=== PATIENT | male | born 1965 | race Caucasian/White ===

== ENCOUNTER → 2021-09-22 14:30 | Outpatient (BNVA) | payer MEDICARE, SELFPAY | PROVIDERS: PCP Family Medicine; Visit Provider Internal Medicine Cardiovascular Disease | DX: R07.89 Other chest pain (principal); E78.5 Hyperlipidemia, unspecified; I10 Essential (primary) hypertension; R06.02 Shortness of breath; F17.200 Nicotine dependence, unspecified, uncomplicated; F12.10 Cannabis abuse, uncomplicated | CPT/HCPCS: 93005; 99204 ==

== ENCOUNTER 2021-12-10 09:29 | Outpatient (CLI) | payer MEDICARE, SELFPAY ==
[2021-12-10 09:48] VITALS: BMI 25.0
--- NOTE | 2021-12-10 10:03 | ECG_ITS ---
[facility] Test Date: 2021-12-10 Pat Name: Edgar Florence Department: Room: Gender: Male Psychologist Educational: : 1965 Requested By: Ramakrishna Pike Order Number: [id number] Carmen MD: Ramakrishna Pike M.D. Interpretive Statements NAME OF STUDY: LEXISCAN SESTAMIBI STRESS TEST INDICATION: Chest Pain, PROCEDURE: At the baseline, the EKG revealed normal sinus rhythm with a heart rate of [address] Ts.. The baseline heart was 75 bpm with a blood pressue of 142/85 mm of Hg Lexiscan was infused over a period of 20 seconds. A total of 0.4 milligrams of Lexiscan was infused. The stress phase was continued for a total of 5 minutes. Heart rate at the end of the stress phase was 76 bpm with a blood pressure 143/87 mm of Hg. The EKG at the peak infusion revealed no significant changes. Sestamibi was injected 20 seconds after the Lexiscan infusion. Heart rate at the end of the recovery phase was 70 bpm with a blood pressure of 128/68 mm of Hg. CONCLUSION: 1. No significant EKG changes with the LexiScan infusion 2. No LexiScan induced chest pain or cardiac arrhythmia 3. Normal blood pressure and heart rate response 4. Sestamibi/sestamibi perfusion scan pending; see separate report. Electronically Signed On 12-16-2021 11:30:06 [employer] by Ramakrishna Pike M.D. [email or web address]
--- NOTE | 2021-12-10 10:04 | NMCV_ITS ---
NM anitra perf SPECT r/s* [id number] Edgar Florence Age: 56 Gender: M : 1965 Exam Date: 12/10/2021 10:56 Ordering Phys: Ramakrishna Pike MD ([email or web address]) Technologist: CARLIN Harmna Exam Location: [facility] Indications: SHORTNESS OF BREATH STRESS TEST [facility] IMAGE PROTOCOL Rest/Stress 1 Lexiscan Day Radiopharmaceutical Dose (mCi) Administration Site Administered by Rest: Tc-99m 11.0 IV CARLIN Jarrell Sestamibi Stress:Tc-99m 32.4 IV CARLIN Jarrell Sestamibi Rest: 10-Dec-2021 60 Discovery 630 Stress: 10-Dec-2021 30 Discovery 630 0.4mg Lexiscan. Images obtained in supine and prone position. SPECT RESULTS Technical Quality: Excellent Raw Data Analysis: Normal Image Corrections: No attenuation or motion correction applied Summed Stress Score: 0 Summed Rest Score: 1 Summed Difference Score: 0 PERFUSION FINDINGS Small area of slightly decreased tracer uptake was noted in the mid inferoseptal region with no significant reversibility FUNCTIONAL RESULTS (calculated via Gated SPECT) Stress Image LV EF (%): 68 Stress EDV (mL):78 TID: 0.98 Stress ESV (mL):25 FUNCTIONAL FINDINGS: Segmental wall motion analysis revealing no gross wall motion normalities IMPRESSIONS 1. Myocardial perfusion imaging revealing small area of slightly decreased persistent tracer uptake in the mid inferoseptal region suggesting myocardial scarring versus attenuation artifact. 2. Normal LV ejection fraction of 60% 3. Segmental wall motion analysis revealing no gross wall motion abnormalities 4. Normal LV volume Low probability for coronary ischemia, based on the above findings Dr Ramakrishna Pike MD FACC (Electronically Signed) Final Date: 10 December 2021 17:39 S
[2021-12-10] MEDS: regadenoson 0.4 Mg/5 ml Syringe IVP (12:05)
[2021-12-10 12:20] VITALS: BP 129/68; PULSE 75
--- NOTE | 2021-12-10 13:00 | USCV_ITS ---
Edgar Florence Age: 56 Gender: M : 1965 Exam Date: 12/10/2021 10:35 Ordering Phys: Ramakrishna Pike MD ([email or web address]) Technologist: EMILIE Exam Location: [facility] [place] Indication: CHEST PAIN AND SHORTNESS OF BREATH BP: 112 / 76 HR: 69 Rhythm: Sinus Technical Quality: Adequate MEASUREMENTS (Male / Female) Normal Values 2D ECHO LVOT Diameter 2.0 cm LV Ejection Fraction MOD 2C 60.9 % LV Ejection Fraction 2C AL 60.4 % LA Diameter 2.8 cm LA Width 3.5 cm LA Height 4.1 cm RA Width 3.1 cm RA Height 4.5 cm Aorta at Sinotubular Diameter 2.0 cm IVC Diameter 1.3 cm M-MODE Aortic Annulus Diameter 2.5 cm LA Ao Ratio MM 1.0 MV E Point Septal Separation 0.3 cm DOPPLER AV Peak Velocity 155.0 cm/s LVOT Peak Velocity 108.0 cm/s AV Area Cont Eq vti 2.2 cm squared AV Area Cont Eq pk 2.3 cm squared MV Peak Velocity 104.0 cm/s MV Area PHT 3.1 cm squared Mitral E to A Ratio 0.9 MV E' Velocity 46.0 cm/s Mitral E to MV E' Ratio 7.4 Mitral E to LV E' Lateral Ratio 7.1 Mitral E to LV E' Septal Ratio 7.8 TR Peak Velocity 262.8 cm/s TR Peak Gradient 27.6 mmHg TR Mean Velocity 218.5 cm/s TR Mean Gradient 19.7 mmHg TR Velocity Time Integral 76.5 cm TV Peak E Velocity 50.0 cm/s Right Atrial Pressure 3.0 mmHg Pulmonary Artery Systolic Pressu 30.6 mmHg PV Peak Velocity 147.0 cm/s RV Acceleration Time 0.2 s RV Ejection Time 0.3 s RV AcT/ET 0.5 FINDINGS Left Ventricle Normal left ventricular size and systolic function, EF 63 %. No regional wall motion abnormalities. Grade I/IV diastolic dysfunction (abnormal relaxation filling pattern), normal to mildly elevated filling pressures. Right Ventricle The right ventricle is normal in size and function. Right Atrium The right atrium is normal in size. Left Atrium The left atrium is normal in size. Mitral Valve Trace mitral valve regurgitation. Aortic Valve Thickened aortic valve. Tricuspid Valve No gross abnormalities noted Pulmonic Valve No gross abnormalities noted Pericardium Normal pericardium without effusion. Aorta Normal ascending aorta dimension. IVC The inferior vena cava appears normal. CONCLUSIONS Normal left ventricular size and systolic function, EF 63 %. No regional wall motion abnormalities. Grade I/IV diastolic dysfunction (abnormal relaxation filling pattern), normal to mildly elevated filling pressures. Thickened aortic valve. Trace mitral valve regurgitation. There is no pericardial effusion. There are no intracardiac masses. No similar previous studies are available for comparison Dr Ramakrishna Pike MD FACC (Electronically Signed) Final Date: 10 December 2021 18:22 S
== END 2021-12-10 09:30 | disposition home or self-care (01) ==
PROVIDERS: PCP Family Medicine; Visit Provider Internal Medicine Cardiovascular Disease
DX: R06.09 Other forms of dyspnea (principal); R06.02 Shortness of breath; R07.9 Chest pain, unspecified; I35.8 Other nonrheumatic aortic valve disorders; I50.30 Unspecified diastolic (congestive) heart failure
CPT/HCPCS: 78452; 93017; 93306; A9500; J2785